=== PATIENT | female | born 1930 | race Caucasian/White ===

== ENCOUNTER 2017-09-04 12:24 | Inpatient (IN) | payer OTHER ==
[~2017-09-04] VITALS: Ht 157.5 cm; Wt 51.0 kg
[2017-09-04 13:59] LABS: HEMATOCRIT 38.2 % (36.0-46.0); HEMOGLOBIN 12.7 G/DL (11.9-15.5); MCH 28.9 PG (29.0-34.0); MCHC 33.2 G/DL (30.0-36.0); MCV 86.8 FL (83-99); PLATELET COUNT 195 K/uL (156-360); RBC DIS.WIDTH-CV 15.6 % (11.8-14.6); RBC DIS.WIDTH-SD 49.4 % (39-53); WHITE BLOOD COUNT 8.9 K/uL (4.1-10.2)
[2017-09-04 14:00] LABS: APPEARANCE CLEAR ((CLEAR)); BILIRUBIN NEGATIVE; BLOOD SMALL; COLOR STRAW ((YELLOW)); GLUCOSE (STRIP) NEGATIVE; KETONES NEGATIVE; LEUKOCYTES LARGE; NITRITE NEGATIVE; PROTEIN (STRIP) NEGATIVE; SPECIFIC GRAVITY 1.004 (1.000-1.030); UROBILINOGEN 0.2 MG/DL (0.2-1.0)
[2017-09-04 14:07] LABS: BACTERIA RARE /HPF; EPITHELIAL CELLS RARE /HPF; MUCUS NONE SEEN /LPF; UCUL ADDED? YES; WHITE BLOOD CELLS TNTC /HPF (0-5)
[2017-09-04 14:08] LABS: INTER. NORMALIZED RATIO 1.3
[2017-09-04 14:10] LABS: CHLORIDE 108 mEq/L (99-109); POTASSIUM 4.3 mEq/L (3.7-5.4); SODIUM 143 mEq/L (136-147)
[2017-09-04 14:11] LABS: PTT 35.4 SEC (25-37)
[2017-09-04 14:12] LABS: GLUCOSE 97 mg/dL (70-99)
[2017-09-04 14:16] LABS: CREATININE 1.2 mg/dL (0.6-1.3); GFR ESTIMATE (CALCULATED) 45 mL/min/
[2017-09-04 14:17] LABS: UREA NITROGEN (BUN) 32 mg/dL (9-23)
[2017-09-04 14:22] LABS: TROP-I INTERPRETATION NEGATIVE; TROPONIN-I < 0.01 ng/mL (0.0-0.30)
[2017-09-04 17:31] VITALS: BP 155/67
[2017-09-04 19:36] VITALS: BP 142/62
[2017-09-04] MEDS ORDERED: MELATONIN5 M1 PO (19:37)
[2017-09-04] MEDS ORDERED: METOPROLOL TART25 MG PO (19:38)
[2017-09-04] MEDS ORDERED: ONCE DAILY1 EACH PO (19:39)
[2017-09-04] MEDS ORDERED: LYRICA50 MG PO (19:40)
[2017-09-04] MEDS ORDERED: TYLENOL REGULA325 MG PO (19:42)
[2017-09-04] MEDS ORDERED: LEVOTHYROXINE25 MCG PO (19:43)
[2017-09-04] MEDS ORDERED: AMLODIPINE BESY10 MG PO (19:44)
[2017-09-04] MEDS ORDERED: AMIODARONE HCL100 MG PO (19:45)
[2017-09-04] MEDS ORDERED: ELIQUIS2.5 MG PO (19:46)
[2017-09-04] MEDS ORDERED: PRESERVISION A1 EAC2 PO (19:46)
[2017-09-04] MEDS ORDERED: LACTULOSE10 GM/151 PO (19:47)
[2017-09-04] MEDS ORDERED: METAMUCIL FIBE3.4 GM PO (19:48)
[2017-09-04] MEDS ORDERED: MILK OF MAGN PO (19:50)
[2017-09-04] MEDS ORDERED: DULCOLAX10 MG PR (19:51)
[2017-09-04 23:14] VITALS: BP 139/62
[2017-09-05 03:41] VITALS: BP 157/67
[2017-09-05 07:20] VITALS: BP 155/72
[2017-09-05 15:57] VITALS: BP 126/58
[2017-09-05 19:06] VITALS: BP 160/70
[2017-09-06 00:13] VITALS: BP 151/67
[2017-09-06 03:21] VITALS: BP 140/65
[2017-09-06 06:38] LABS: CHLORIDE 103 MEQ/L (99-109); CREATININE 1.2 MG/DL (0.6-1.3); GFR ESTIMATE (CALCULATED) 45 mL/min/; GLUCOSE 111 mg/dL (70-99); POTASSIUM 4.6 MEQ/L (3.7-5.4); SODIUM 137 MEQ/L (136-147); UREA NITROGEN (BUN) 27 mg/dL (9-23)
[2017-09-06 06:52] LABS: BASOPHIL (%) 0.5 % (0-1); BASOPHIL COUNT 0.1 K/uL (0-0.1); EOSINOPHIL COUNT 0.3 K/uL (0-0.3); HEMATOCRIT 30.6 % (36.0-46.0); IMMATURE GRANULOCYTE (%) 0.4 % (0.0-0.7); LYMPHOCYTE COUNT 1.1 K/uL (1.0-2.8); MCH 28.9 PG (29.0-34.0); MCHC 32.4 G/DL (30.0-36.0); MCV 89.2 FL (83-99); MONOCYTE (%) 9.5 % (3-12); MONOCYTE COUNT 0.9 K/uL (0-0.8); NEUTROPHIL (%) 74.6 % (45-76); NEUTROPHIL COUNT 6.9 K/uL (1.8-6.4); RBC DIS.WIDTH-CV 15.8 % (11.8-14.6); WHITE BLOOD COUNT 9.2 K/uL (4.1-10.2)
[2017-09-06 06:57] LABS: PLAT.SUFFICIENCY DECREASED
[2017-09-06 07:11] LABS: HEMOGLOBIN 9.9 G/DL (11.9-15.5); PLATELET COUNT 128 K/uL (156-360); RED BLOOD COUNT 3.43 M/uL (3.80-5.20)
[2017-09-06 07:51] VITALS: BP 143/65
[2017-09-06] MEDS ORDERED: ARTIFICIAL TEAR1510 BOTH EYES (10:00)
[2017-09-06 11:51] VITALS: BP 148/65
[2017-09-06 15:13] LABS: BASOPHIL (%) 0.6 % (0-1); BASOPHIL COUNT 0.1 K/uL (0-0.1); EOSINOPHIL (%) 4.2 % (0-5); EOSINOPHIL COUNT 0.4 K/uL (0-0.3); HEMATOCRIT 28.6 % (36.0-46.0); HEMOGLOBIN 9.6 G/DL (11.9-15.5); IMMATURE GRANULOCYTE (%) 0.2 % (0.0-0.7); LYMPHOCYTE (%) 16.9 % (15-42); LYMPHOCYTE COUNT 1.5 K/uL (1.0-2.8); MCH 29.6 PG (29.0-34.0); MCHC 33.6 G/DL (30.0-36.0); MCV 88.3 FL (83-99); MONOCYTE (%) 7.8 % (3-12); MONOCYTE COUNT 0.7 K/uL (0-0.8); NEUTROPHIL (%) 70.3 % (45-76); NEUTROPHIL COUNT 6.2 K/uL (1.8-6.4); PLATELET COUNT 122 K/uL (156-360); RBC DIS.WIDTH-CV 15.8 % (11.8-14.6); RBC DIS.WIDTH-SD 51.3 % (39-53); RED BLOOD COUNT 3.24 M/uL (3.80-5.20); WHITE BLOOD COUNT 8.8 K/uL (4.1-10.2)
[2017-09-06 15:24] LABS: CHLORIDE 104 mEq/L (99-109); POTASSIUM 4.6 mEq/L (3.7-5.4); SODIUM 136 mEq/L (136-147)
[2017-09-06 15:26] LABS: GLUCOSE 120 mg/dL (70-99)
[2017-09-06 15:30] LABS: CREATININE 1.3 mg/dL (0.6-1.3); GFR ESTIMATE (CALCULATED) 41 mL/min/; UREA NITROGEN (BUN) 28 mg/dL (9-23)
[2017-09-06 15:38] LABS: TROP-I INTERPRETATION NEGATIVE; TROPONIN-I 0.03 ng/mL (0.0-0.30)
[2017-09-06 20:45] VITALS: BP 128/54
[2017-09-06 23:40] VITALS: BP 129/58
[2017-09-07 04:39] VITALS: BP 120/58
[2017-09-07 07:32] VITALS: BP 143/67
[2017-09-07 11:37] VITALS: BP 132/61
[2017-09-07 15:43] VITALS: BP 158/67
[2017-09-07 19:56] VITALS: BP 137/66
[2017-09-07 23:33] VITALS: BP 145/60
[2017-09-08 04:49] VITALS: BP 131/60
[2017-09-08 07:31] LABS: BASOPHIL (%) 0.4 % (0-1); EOSINOPHIL (%) 2.5 % (0-5); EOSINOPHIL COUNT 0.2 K/uL (0-0.3); HEMOGLOBIN 8.5 G/DL (11.9-15.5); IMMATURE GRANULOCYTE (%) 0.4 % (0.0-0.7); LYMPHOCYTE (%) 10.6 % (15-42); MCH 29.2 PG (29.0-34.0); MCHC 32.7 G/DL (30.0-36.0); MCV 89.3 FL (83-99); MONOCYTE (%) 9.7 % (3-12); MONOCYTE COUNT 0.9 K/uL (0-0.8); NEUTROPHIL (%) 76.4 % (45-76); PLATELET COUNT 140 K/uL (156-360); RBC DIS.WIDTH-CV 15.4 % (11.8-14.6); RBC DIS.WIDTH-SD 50.6 % (39-53); RED BLOOD COUNT 2.91 M/uL (3.80-5.20); WHITE BLOOD COUNT 9.1 K/uL (4.1-10.2)
[2017-09-08 07:53] LABS: CHLORIDE 102 MEQ/L (99-109); CREATININE 1.2 MG/DL (0.6-1.3); GFR ESTIMATE (CALCULATED) 45 mL/min/; GLUCOSE 117 mg/dL (70-99); POTASSIUM 4.7 MEQ/L (3.7-5.4); SODIUM 138 MEQ/L (136-147); UREA NITROGEN (BUN) 29 mg/dL (9-23)
[2017-09-08 08:23] VITALS: BP 150/67
[2017-09-08 15:54] VITALS: BP 142/65
[2017-09-08 19:19] VITALS: BP 141/63
[2017-09-08 23:44] VITALS: BP 133/63
[2017-09-09] VITALS (7 sets, daily range): BP systolic 127–173; BP diastolic 57–69
[2017-09-09 06:08] LABS: BASOPHIL (%) 0.7 % (0-1); BASOPHIL COUNT 0.1 K/uL (0-0.1); EOSINOPHIL (%) 4.4 % (0-5); EOSINOPHIL COUNT 0.4 K/uL (0-0.3); HEMATOCRIT 25.3 % (36.0-46.0); HEMOGLOBIN 8.3 G/DL (11.9-15.5); IMMATURE GRANULOCYTE (%) 0.5 % (0.0-0.7); LYMPHOCYTE (%) 19.8 % (15-42); LYMPHOCYTE COUNT 1.9 K/uL (1.0-2.8); MCH 29.7 PG (29.0-34.0); MCHC 32.8 G/DL (30.0-36.0); MCV 90.7 FL (83-99); MONOCYTE (%) 12.3 % (3-12); MONOCYTE COUNT 1.2 K/uL (0-0.8); NEUTROPHIL (%) 62.3 % (45-76); PLATELET COUNT 167 K/uL (156-360); RBC DIS.WIDTH-CV 15.6 % (11.8-14.6); RBC DIS.WIDTH-SD 51.7 % (39-53); RED BLOOD COUNT 2.79 M/uL (3.80-5.20); WHITE BLOOD COUNT 9.6 K/uL (4.1-10.2)
[2017-09-09 06:24] LABS: CHLORIDE 102 MEQ/L (99-109); CREATININE 1.2 MG/DL (0.6-1.3); GFR ESTIMATE (CALCULATED) 45 mL/min/; GLUCOSE 112 mg/dL (70-99); POTASSIUM 4.8 MEQ/L (3.7-5.4); SODIUM 139 MEQ/L (136-147); UREA NITROGEN (BUN) 30 mg/dL (9-23)
[2017-09-09] MEDS ORDERED: ALBUTEROL2.5 MG/0.5 AEROSOL ×2 (12:42→15:58)
[2017-09-09] MEDS ORDERED: TRAMADOL HCL50 MG PO (12:44)
[2017-09-09] MEDS ORDERED: OXYCODONE HCL5 MG PO (12:44)
[2017-09-09] MEDS ORDERED: FEOSOL325 MG PO (12:51)
[2017-09-10 04:00] VITALS: BP 181/79
[2017-09-10 08:05] VITALS: BP 165/70
== END 2017-09-10 14:50 | DRG 470 ==
LOC: EME 12:24 → 3EAST 13:01 → EDOF 13:01 → ENRESERV 15:32 → CANRESERV 15:32 → ENRESERV 16:35 → 3EAST 17:11
PROVIDERS: Emergency Medicine; Family Medicine; Internal Medicine Cardiovascular Disease; Orthopaedic Surgery
PROC: 0SRR0JZ Replacement of Right Hip Joint, Femoral Surface with Synthetic Substitute, Open Approach (ICD-10-PCS; principal; 2017-09-05)
DX: S72.011A Unspecified intracapsular fracture of right femur, initial encounter for closed fracture (principal); G62.9 Polyneuropathy, unspecified; R09.02 Hypoxemia; N39.0 Urinary tract infection, site not specified; J98.11 Atelectasis; M81.0 Age-related osteoporosis without current pathological fracture; I13.0 Hypertensive heart and chronic kidney disease with heart failure and stage 1 through stage 4 chronic kidney disease, or unspecified chronic kidney disease; N18.9 Chronic kidney disease, unspecified; B96.1 Klebsiella pneumoniae [K. pneumoniae] as the cause of diseases classified elsewhere; I48.0 Paroxysmal atrial fibrillation; F03.90 Unspecified dementia, unspecified severity, without behavioral disturbance, psychotic disturbance, mood disturbance, and anxiety; E07.9 Disorder of thyroid, unspecified; I35.0 Nonrheumatic aortic (valve) stenosis; I50.9 Heart failure, unspecified; D64.9 Anemia, unspecified; W01.0XXA Fall on same level from slipping, tripping and stumbling without subsequent striking against object, initial encounter; Y92.89 Other specified places as the place of occurrence of the external cause; Y93.89 Activity, other specified; Z95.0 Presence of cardiac pacemaker
CPT/HCPCS: 71045; 73502; 80048; 80048 91; 81003; 84484; 85014; 85018; 85025; 85025 91; 85027; 85610; 85730; 87077; 87086 GA; 87186; 93005; 93306; 94640; 94799; 97530 GP; 99281; 99285; J1170; J1650; J1885; J1940; J1956; J3010; J3370; S0020